=== PATIENT | female | born 1945 | race African-American/Black ===

== ENCOUNTER 2019-08-11 05:17 | Inpatient (IN) ==
[2019-08-11] MEDS ORDERED: DIAZEPAM 5 MG TABLET PO ONE (06:00)
[2019-08-11] MEDS ORDERED: ACETAMINOPHEN 500 MG TABLET PO ONE (06:00)
[2019-08-11] MEDS ORDERED: LACTATED RINGERS 1,000 ML IV SCH (06:00)
[2019-08-11] MEDS ORDERED: FAMOTIDINE 20 MG TABLET PO ONE (06:00)
[2019-08-11] MEDS ORDERED: GABAPENTIN 400 MG CAPSULE PO ONE (06:00)
[2019-08-11] MEDS ORDERED: ceFAZolin 1,000 MG in SYRINGE 1 EACH IV ONE (06:30)
[2019-08-11] MEDS ORDERED: VANCOMYCIN INJ 1,000 MG in SODIUM CHLORIDE 0.9% 250 ML IV ONE (06:30)
[2019-08-11] MEDS ORDERED: VANCOMYCIN 1,000 MG VIAL ONE (06:54)
[2019-08-11] MEDS ORDERED: ceFAZolin 1,000 MG VIAL ONE (06:54)
[2019-08-11] MEDS ORDERED: DIAZEPAM 5 MG TABLET ONE (06:55)
[2019-08-11] MEDS ORDERED: ACETAMINOPHEN 500 MG TABLET ONE (06:55)
[2019-08-11] MEDS ORDERED: GABAPENTIN 400 MG CAPSULE ONE (06:55)
[2019-08-11] MEDS ORDERED: FAMOTIDINE 20 MG TABLET ONE (06:56)
[2019-08-11] MEDS ORDERED: ROPIVACAINE 0.5% 30 ML VIAL ONE (07:04)
[2019-08-11] MEDS ORDERED: EPINEPHrine 1 MG/ML VIAL ONE (07:04)
[2019-08-11] MEDS ORDERED: DEXAMETHASONE 4 MG/1 ML VIAL ONE (07:04)
[2019-08-11] MEDS ORDERED: BACITRACIN OINT 0.9 GM PACK TOP ONE (07:24)
[2019-08-11] MEDS ORDERED: TRANEXAMIC ACID 1,000 MG/10 ML VIAL ONE (07:24)
[2019-08-11] MEDS ORDERED: BUPIVACAINE SPINAL 0.75% 2 ML AMP SPINAL ONE (08:02)
[2019-08-11] MEDS ORDERED: BETAMETH SODIUM PHOS/ACETATE 30 MG/5 ML VIAL ONE ×2 (09:33→09:53)
[2019-08-11] MEDS ORDERED: MORPHINE 4 MG/1 ML VIAL IV PRN ×2 (09:50)
[2019-08-11] MEDS ORDERED: oxyCODONE IR 5 MG TABLET PO PRN ×2 (09:50)
[2019-08-11] MEDS ORDERED: MAGNESIUM HYDROXIDE SUSP 30 ML UDCUP PO PRN (09:50)
[2019-08-11] MEDS ORDERED: ONDANSETRON 4 MG/2 ML VIAL IV PRN (09:50)
[2019-08-11] MEDS ORDERED: PROMETHAZINE 25 MG/1 ML VIAL IM PRN (09:50)
[2019-08-11] MEDS ORDERED: ZALEPLON 5 MG CAPSULE PO PRN (09:50)
[2019-08-11] MEDS ORDERED: diphenhydrAMINE CAP 25 MG CAPSULE PO PRN (09:50)
[2019-08-11] MEDS ORDERED: LIDOCAINE 2% 5 ML VIAL ONE (10:15)
[2019-08-11] MEDS ORDERED: PROPOFOL 200 MG/20 ML VIAL IV ONE (10:15)
[2019-08-11] MEDS ORDERED: SEVOFLURANE 1 UNIT/15 MINUTE INH ONE (10:15)
[2019-08-11] MEDS ORDERED: PHENYLEPHRINE 1 MG/10 ML SYRINGE IV ONE (10:16)
[2019-08-11] MEDS ORDERED: SODIUM CHLORIDE 0.9% 100 ML IV ONE (10:16)
[2019-08-11] MEDS ORDERED: MIDAZOLAM 2 MG/2 ML VIAL ONE (10:16)
[2019-08-11] MEDS ORDERED: fentaNYL 100 MCG/2 ML VIAL ONE (10:16)
[2019-08-11] MEDS ORDERED: SODIUM CHLORIDE 0.9% 250 ML IV ONE (10:16)
[2019-08-11] MEDS: LACTATED RINGERS 1,000 ML IV SCH ×2 (11:11→22:46)
[2019-08-11] MEDS: ACETAMINOPHEN 500 MG TABLET PO SCH ×2 (13:45→20:30)
[2019-08-11] MEDS: ceFAZolin 1,000 MG in SYRINGE 1 EACH IV SCH ×3 (13:47→22:49)
[2019-08-11] MEDS: GABAPENTIN 100 MG CAPSULE PO SCH ×2 (14:56→20:30)
[2019-08-11] MEDS: DOCUSATE SODIUM 100 MG CAPSULE PO SCH (20:29)
[2019-08-11] MEDS: oxyCODONE/ACETAMINOPHEN 5-325 MG TABLET PO PRN (20:29)
[2019-08-12] MEDS: ACETAMINOPHEN 500 MG TABLET PO SCH ×2 (01:29→08:01)
[2019-08-12] MEDS: FONDAPARINUX 2.5 MG/0.5 ML SYRINGE SUBCUT SCH (03:20)
[2019-08-12 06:13] LABS: Basophils % 0.1 % (0.0-0.8); Hematocrit 29.5 VOL% (35.7-47.0); Hemoglobin 9.6 GM/DL (12.0-16.0); Immature Granulocytes % 0.8 %; Immature Granulocytes Absolute 0.12 #; Lymphocytes # 1.5 10*3/uL (1.4-4.0); Lymphocytes % 10.1 % (21.3-54.2); Mean Corpuscular HGB Conc 32.5 GM/DL (32-36); Mean Corpuscular Volume 92.5 FL (87-102); Mean Platelet Volume 10.3 FL (9.6-12.0); Monocytes % 6.8 % (1.7-12.7); Neutrophils % 82.2 % (38.7-73.9); Platelet Count 217 T/CUMM (130-400); Red Blood Count 3.19 MC/CUMM (3.8-5.5); White Blood Count 14.6 T/CUMM (4-12)
[2019-08-12 06:33] LABS: Calcium 9.3 MG/DL (8.5-10.1); Osmolality,Calculated 288.7 MOS/KG (273-304)
[2019-08-12] MEDS: POTASSIUM CHLORIDE 10 MEQ TABLET PO SCH (08:00)
[2019-08-12] MEDS: DOCUSATE SODIUM 100 MG CAPSULE PO SCH ×2 (08:00→21:29)
[2019-08-12] MEDS: FERROUS SULFATE 325 MG TABLET PO SCH (08:01)
[2019-08-12] MEDS: LISINOPRIL/HCTZ 20-25 MG TABLET PO SCH (08:01)
[2019-08-12] MEDS: GABAPENTIN 100 MG CAPSULE PO SCH ×3 (08:01→21:29)
[2019-08-12] MEDS: CYANOCOBALAMIN 500 MCG TABLET PO SCH (08:01)
[2019-08-12] MEDS: VITAMIN E 400 UNIT CAPSULE PO SCH (08:01)
[2019-08-12] MEDS: oxyCODONE/ACETAMINOPHEN 5-325 MG TABLET PO PRN (10:46)
[2019-08-13] MEDS: oxyCODONE/ACETAMINOPHEN 5-325 MG TABLET PO PRN ×2 (02:08→09:11)
[2019-08-13] MEDS: FONDAPARINUX 2.5 MG/0.5 ML SYRINGE SUBCUT SCH (03:48)
[2019-08-13 06:14] LABS: Basophils % 0.1 % (0.0-0.8); Eosinophils % 0.1 % (0.00-10.9); Hematocrit 27.2 VOL% (35.7-47.0); Hemoglobin 9.1 GM/DL (12.0-16.0); Immature Granulocytes % 0.5 %; Immature Granulocytes Absolute 0.08 #; Lymphocytes # 2.6 10*3/uL (1.4-4.0); Mean Corpuscular HGB Conc 33.5 GM/DL (32-36); Mean Platelet Volume 9.8 FL (9.6-12.0); Monocytes % 8.1 % (1.7-12.7); Neutrophils % 73.2 % (38.7-73.9); Platelet Count 195 T/CUMM (130-400); Red Blood Count 2.99 MC/CUMM (3.8-5.5); Red Cell Distribution Width 13.1 % (9.3-17.3); White Blood Count 14.6 T/CUMM (4-12)
[2019-08-13] MEDS: GABAPENTIN 100 MG CAPSULE PO SCH (08:15)
[2019-08-13] MEDS: VITAMIN E 400 UNIT CAPSULE PO SCH (08:16)
[2019-08-13] MEDS: POTASSIUM CHLORIDE 10 MEQ TABLET PO SCH (08:16)
[2019-08-13] MEDS: DOCUSATE SODIUM 100 MG CAPSULE PO SCH (08:16)
[2019-08-13] MEDS: LISINOPRIL/HCTZ 20-25 MG TABLET PO SCH (08:16)
[2019-08-13] MEDS: FERROUS SULFATE 325 MG TABLET PO SCH (08:17)
[2019-08-13] MEDS: CYANOCOBALAMIN 500 MCG TABLET PO SCH (08:17)
[2019-08-13] MEDS: LACTATED RINGERS 1,000 ML IV SCH (11:33)
[2019-08-13 11:35] VITALS: BP 142/68
== END 2019-08-13 12:17 | disposition home health service (06) | DRG 470 ==
LOC: N.OR 05:17 → N.SDSINP 05:18 → N.3E 10:55
PROVIDERS: ADMIT Orthopaedic Surgery; ATTEND Orthopaedic Surgery